=== PATIENT | female | born 1950 | race Caucasian/White ===

== ENCOUNTER 2017-03-17 11:31 | Emergency (ER) | payer OTHER, MEDICAID ==
[~2017-03-17] VITALS: Ht 167.6 cm; Wt 73.0 kg
[2017-03-17] MEDS ORDERED: SODIUM CHLORIDE 0.9% 500 ML IV ONE (12:46)
[2017-03-17] MEDS ORDERED: MORPHINE SULFATE 4 MG/ML CPJ (NOT FOR IM USE) IV ONE (13:00)
[2017-03-17] MEDS ORDERED: ONDANSETRON HCL 4MG/2ML VIAL IV ONE (13:00)
[2017-03-17] MEDS ORDERED: KETOROLAC 15MG/ML VIAL IV ONE (13:00)
[2017-03-17 13:17] LABS: BASOPHILS % 0.2 % (0.0-2.0); EOSINOPHILS % 2.3 % (0.0-5.0); HEMATOCRIT. 46.2 % (36.0-48.0); HEMOGLOBIN. 15.6 g/dL (12.0-16.0); LYMPHOCYTES % 21.2 % (20.0-50.0); MEAN CORPUSCULAR HEMOGLOBIN 30.4 pg (28.0-32.0); MEAN CORPUSCULAR HGB CONC 33.8 g/dL (31.0-37.0); MEAN CORPUSCULAR VOLUME 89.9 fL (81.0-99.0); MEAN PLATELET VOLUME 8.2 fl (7.4-10.4); MONOCYTES % 8.7 % (2.0-8.0); NEUTROPHILS % 67.6 % (40.0-76.0); PLATELET 279 x1000/uL (130-400); RED BLOOD CELL COUNT 5.14 mill/uL (4.2-5.4); RED CELL DISTRIBUTION WIDTH 13.3 % (11.6-14.6); WHITE BLOOD COUNT 7.3 x1000/uL (4.5-11.0)
[2017-03-17 13:28] LABS: CALCIUM 9.5 mg/dL (8.5-10.1); CHLORIDE 103 mEq/L (98-107); INDEX HEMOLYSI 1 (1-3); INDEX ICTERIC 1 (1-4); INDEX LIPEMIC 1 (1-3)
[2017-03-17 13:36] LABS: ALANINE AMINOTRANSFERASE 46 IU/L (13-61); ALBUMIN 4.2 g/dL (3.4-5.0); ANION GAP 12; CARBON DIOXIDE 28 mEq/L (21-32); CREATINE KINASE 200 IU/L (26-192); ETHANOL BLOOD < 10 mg/dL; NT PRO B-TYPE NATRIURETIC PEP 51 pg/mL (5-125); TROPONIN I < 0.02 ng/mL (0.00-0.04); UREA NITROGEN BLOOD 12 mg/dL (7-21); eGFR > 60 mL/min (>60)
[2017-03-17 15:31] VITALS: BP 139/73
== END 2017-03-17 16:37 | disposition home or self-care (01) ==
LOC: ER 11:48
DX: S16.1XXA Strain of muscle, fascia and tendon at neck level, initial encounter (principal); S39.012A Strain of muscle, fascia and tendon of lower back, initial encounter; I10 Essential (primary) hypertension; R41.82 Altered mental status, unspecified; V43.52XA Car driver injured in collision with other type car in traffic accident, initial encounter; Y93.89 Activity, other specified; Y92.488 Other paved roadways as the place of occurrence of the external cause
CPT/HCPCS: 36415; 70450; 71010; 71250; 72110; 72125; 74176; 80053; 82550; 83880; 84443; 84484; 85025; 85610; 93005; 96361; 96374; 96375; 99285; G0482; J1885; J2270; J2405; J7030; J7040

== ENCOUNTER 2019-05-03 16:45 | Emergency (ER) | payer OTHER, MEDICAID ==
[~2019-05-03] VITALS: Ht 160 cm; Wt 66.0 kg
[2019-05-03 18:15] VITALS: BP 143/58
== END 2019-05-03 18:44 | disposition home or self-care (01) ==
LOC: ER 16:45
DX: R51 Headache (principal); I10 Essential (primary) hypertension; E11.9 Type 2 diabetes mellitus without complications; E78.00 Pure hypercholesterolemia, unspecified
CPT/HCPCS: 99283

== ENCOUNTER 2021-01-16 08:11 | Emergency (ER) | payer MEDICAID, OTHER ==
[~2021-01-16] VITALS: Ht 165.1 cm; Wt 66.0 kg
[2021-01-16 08:55] VITALS: BP 171/96
[2021-01-16 09:32] LABS: BASOPHILS % 0.1 % (0.0-2.0); EOSINOPHILS % 2.1 % (0.0-5.0); HEMATOCRIT. 41.9 % (36.0-48.0); HEMOGLOBIN. 14.1 g/dL (12.0-16.0); LYMPHOCYTES % 14.3 % (20.0-50.0); MEAN CORPUSCULAR HEMOGLOBIN 30.7 pg (28.0-32.0); MEAN CORPUSCULAR VOLUME 91.3 fL (81.0-99.0); MEAN PLATELET VOLUME 9.3 fl (7.4-10.4); NEUTROPHILS % 76.5 % (40.0-76.0); PLATELET 206 x1000/uL (130-400); RED BLOOD CELL COUNT 4.59 mill/uL (4.2-5.4); RED CELL DISTRIBUTION WIDTH 13.5 % (11.6-14.6)
[2021-01-16 09:41] LABS: CHLORIDE 110 mEq/L (98-107)
[2021-01-16] MEDS ORDERED: DOXY100C2 MT (10:20)
== END 2021-01-16 10:51 | disposition home or self-care (01) ==
LOC: ER 08:19
DX: J18.9 Pneumonia, unspecified organism (principal); I10 Essential (primary) hypertension; E11.9 Type 2 diabetes mellitus without complications; E78.00 Pure hypercholesterolemia, unspecified; Z20.822 Contact with and (suspected) exposure to COVID-19
CPT/HCPCS: 36415; 71045; 80053; 83880; 84484; 85025; 93005; 99285; C9803; U0003

== ENCOUNTER 2022-01-27 22:50 | Emergency (ER) | payer OTHER ==
[~2022-01-27] VITALS: Ht 162.6 cm; Wt 66.0 kg
[~2022-01-27 22:50] MED LIST: DOXY100C5 MT
[2022-01-28] MEDS ORDERED: ACETAMINOPHEN 325MG TABLET PO ONE
[2022-01-28] MEDS ORDERED: AMOX-424 MT (02:46)
[2022-01-28 03:03] VITALS: BP 153/57
== END 2022-01-28 03:04 | disposition home or self-care (01) ==
LOC: ER 22:50
DX: S02.85XA Fracture of orbit, unspecified, initial encounter for closed fracture (principal); W18.39XA Other fall on same level, initial encounter; Y93.89 Activity, other specified; Y92.89 Other specified places as the place of occurrence of the external cause; Y99.8 Other external cause status; E11.9 Type 2 diabetes mellitus without complications; E78.00 Pure hypercholesterolemia, unspecified; I10 Essential (primary) hypertension; I25.2 Old myocardial infarction
CPT/HCPCS: 70486; 71045; 73130; 73562; 99284

== ENCOUNTER 2025-09-28 02:25 | Emergency (ER) | payer OTHER, MEDICAID ==
[~2025-09-28] VITALS: Ht 160 cm; Wt 82.0 kg
[~2025-09-28 02:25] MED LIST changes: +AMOX-424 MT
[2025-09-28 02:26] VITALS: O2SAT 99
[2025-09-28] MEDS: FENTANYL CITRATE/PF 50MCG/ML 2ML VIAL IV ONE (02:48)
[2025-09-28] MEDS: ONDANSETRON HCL 4MG/2ML INJ IV ONE (02:49)
[2025-09-28] MEDS: ACETAMINOPHEN 1000MG/100ML 100 ML IV ONE (02:49)
[2025-09-28 03:10] LABS: BASOPHILS % 0.4 % (0.0-2.0); EOSINOPHILS % 2.7 % (0.0-5.0); HEMATOCRIT. 45.3 % (36.0-48.0); HEMOGLOBIN. 15.0 g/dL (12.0-16.0); LYMPHOCYTES % 31.3 % (20.0-50.0); MEAN PLATELET VOLUME 9.2 fl (7.4-10.4); MONOCYTES % 8.8 % (2.0-8.0); NEUTROPHILS % 56.8 % (40.0-76.0); PLATELET 264 x1000/uL (130-400); RED BLOOD CELL COUNT 4.95 mill/uL (4.2-5.4); RED CELL DISTRIBUTION WIDTH 13.4 % (11.6-14.6)
[2025-09-28 03:17] LABS: CREATININE 0.7 mg/dL (0.6-1.0); UREA NITROGEN BLOOD 20 mg/dL (9-23)
[2025-09-28 03:19] LABS: TROPONIN I HIGH SENSITIVITY < 4 ng/L (3.0-34)
[2025-09-28] MEDS: MORPHINE SULFATE 4 MG/ML INJ (FOR IV/IM USE) IV ONE (05:23)
[2025-09-28 05:47] LABS: CLARITY URINE CLEAR (CLEAR); COLOR URINE YELLOW (YELLOW); GLUCOSE URINE 3+ (NEGATIVE); KETONES URINE NEGATIVE (NEGATIVE); LEUKOCYTE ESTERASE URINE NEGATIVE (NEGATIVE); NITRITE URINE POSITIVE (NEGATIVE); OCCULT BLOOD URINE TRACE (NEGATIVE); PH URINE 6.5 (4.5-8.0); PROTEIN URINE 2+ (NEGATIVE); SPECIFIC GRAVITY URINE 1.031 (1.005-1.030); UROBILINOGEN URINE 0.2 E.U./dL (0.2-1.0)
[2025-09-28] MEDS: PROPOFOL 200MG/20ML VIAL IV NR (05:58)
[2025-09-28] MEDS: CEFTRIAXONE 2GM/50ML 50 ML IV NR (06:52)
[2025-09-28 07:21] LABS: BACTERIA URINE 2+; RBC URINE 0-2 /hpf (0-2); SQUAMOUS EPITHELIAL CELL URINE 1+ /lpf (RARE/1+)
[2025-09-28 08:30] VITALS: TEMP 36.9; O2SAT 98
[2025-09-28 08:36] VITALS: BP 149/49; PULSE 73; RESP 16
[2025-09-28] MEDS: MORPHINE SULFATE 2 MG/ML INJ (NOT FOR IM USE) IV NR (08:36)
== END 2025-09-28 09:21 | disposition short-term general hospital (02) ==
LOC: ER 02:25 → EDBEDREQTM 08:56 → EDBEDREQ 08:56 → CANRESERV 09:10 → ENRESERV 09:10 → CANBEDREQ 09:14 → ER 09:21
DX: S72.342A Displaced spiral fracture of shaft of left femur, initial encounter for closed fracture (principal); I10 Essential (primary) hypertension; E11.9 Type 2 diabetes mellitus without complications; E78.00 Pure hypercholesterolemia, unspecified; R51.9 Headache, unspecified; W01.0XXA Fall on same level from slipping, tripping and stumbling without subsequent striking against object, initial encounter; Y93.89 Activity, other specified; Y92.89 Other specified places as the place of occurrence of the external cause; Y99.8 Other external cause status
CPT/HCPCS: 99285; 70450; 96365; 96375; 71045; 80048; 81003; 85025; 84484; 36415; 73502; 73552; 73560; 73590; 73700; 93005; 96376; J3010; J0696; J2405; J2270 ×2; A4606; J2704; J0131